=== PATIENT | male | born 1950 | race Caucasian/White ===

== ENCOUNTER 2019-09-17 08:16 | Day surgery (SDC) | payer MEDICARE ==
[~2019-09-17] VITALS: Ht 182.9 cm; Wt 85.5 kg
[2019-09-17] MEDS ORDERED: IBU600 MG PO (09:02)
== END 2019-09-17 10:26 | disposition home or self-care (01) ==
LOC: ORSCSDS 08:16
PROVIDERS: Ophthalmology
PROC: 08RJ3JZ Replacement of Right Lens with Synthetic Substitute, Percutaneous Approach (ICD-10-PCS; principal; 2019-09-17 10:00)
DX: H25.11 Age-related nuclear cataract, right eye (principal); I10 Essential (primary) hypertension; F17.210 Nicotine dependence, cigarettes, uncomplicated
CPT/HCPCS: J2001; J2250; J3010; J3301; J7120; V2632

== ENCOUNTER 2019-10-06 11:38 | Day surgery (SDC) | payer MEDICARE, OTHER ==
[~2019-10-06] VITALS: Ht 182.9 cm; Wt 85.7 kg
[~2019-10-06 11:38] MED LIST: IBU600 MG PO
--- NOTE | 2019-10-06 12:56 | NUR ---
10/06/19 1256 Lidia Rey (Liyah DONTAE BLOCK PLACED IN OPERATIVE, LEFT HAND, ORDERED. 1 FAILED ATTEMPT IN LH PAIN MOVED AND PULLED IV CATHETER OUT.
== END 2019-10-06 14:50 | disposition home or self-care (01) ==
LOC: ORSCSDS 11:38
PROVIDERS: Orthopaedic Surgery
PROC: 01N50ZZ Release Median Nerve, Open Approach (ICD-10-PCS; principal; 2019-10-06 13:30)
DX: G56.02 Carpal tunnel syndrome, left upper limb (principal); F17.210 Nicotine dependence, cigarettes, uncomplicated
CPT/HCPCS: J0171; J0690; J2250; J3010; J7120

== ENCOUNTER 2019-10-08 07:33 | Day surgery (SDC) | payer MEDICARE, SELFPAY ==
[~2019-10-08] VITALS: Ht 182.9 cm; Wt 190.2 kg
--- NOTE | 2019-10-08 09:12 | NUR ---
10/08/19 0912 Sabine Gage CALL LIGHT WITHIN REACH.
== END 2019-10-08 11:19 | disposition home or self-care (01) ==
LOC: ORSCSDS 07:33
PROVIDERS: Ophthalmology
PROC: 08RK3JZ Replacement of Left Lens with Synthetic Substitute, Percutaneous Approach (ICD-10-PCS; principal; 2019-10-08 09:00)
DX: H25.12 Age-related nuclear cataract, left eye (principal); H21.81 Floppy iris syndrome; I10 Essential (primary) hypertension; I25.2 Old myocardial infarction; E11.9 Type 2 diabetes mellitus without complications; J44.9 Chronic obstructive pulmonary disease, unspecified; F17.210 Nicotine dependence, cigarettes, uncomplicated; Z79.899 Other long term (current) drug therapy
CPT/HCPCS: 82947; J2001; J2250; J3010; J3301; J7040; V2632

== ENCOUNTER 2023-01-29 10:28 | Inpatient (IN) | payer MEDICARE ==
[~2023-01-29] VITALS: Ht 182.9 cm; Wt 84.8 kg
[2023-01-29 11:25] LABS: BASOPHILS ABSOLUTE AUTO 0.11 K/mm3 (0.00-0.23); BASOPHILS PERCENT AUTO 1 % (0-2); EOSINOPHILS ABSOLUTE AUTO 0.18 K/mm3 (0.00-0.68); EOSINOPHILS PERCENT AUTO 1 % (0-6); Hematocrit 49.8 % (37.0-53.0); Hemoglobin 16.8 g/dL (13.5-17.5); IMMATURE GRAN ABSOLUTE AUTO 0.11 K/mm3 (0.00-0.10); IMMATURE GRAN PERCENT AUTO 1 % (0-1); LYMPHOCYTES PERCENT AUTO 10 % (21-46); MONOCYTES ABSOLUTE AUTO 1.04 K/mm3 (0.16-1.47); MONOCYTES PERCENT AUTO 8 % (4-13); Mean Corpuscular HGB 33.1 pg (26.0-34.0); Mean Corpuscular HGB Conc 33.7 g/dL (31.5-36.5); Mean Corpuscular Volume 98 fL (80-100); Mean Platelet Volume 11.4 fL (9.1-12.4); NEUTROPHILS ABSOLUTE AUTO 10.56 K/mm3 (1.96-9.15); NEUTROPHILS PERCENT AUTO 79 % (41-73); Platelet Count 328 K/mm3 (150-400); RDW Coefficient Variation 16.7 % (11.7-14.2); RDW Standard Deviation 58.4 fL (35.1-46.3); Red Blood Cell Count 5.07 M/mm3 (4.30-5.90)
[2023-01-29 11:40] LABS: Albumin, Blood 2.7 g/dL (3.4-5.0); Albumin/Globulin Ratio 0.5 (0.8-1.8); Bilirubin, Direct 0.8 mg/dL (0.0-0.3); Bilirubin, Indirect 1.1 mg/dL (0.1-0.7); Bilirubin, Total 1.9 mg/dL (0.1-1.0); Bun/Creatinine Ratio 33.4 (12.0-20.0); Creatinine, Blood 0.54 mg/dL (0.60-1.20); Globulin, Blood 5.4 g/dL (2.2-4.0); Magnesium, Blood 2.2 mg/dL (1.6-2.4); Total Protein, Blood 8.1 g/dL (6.4-8.2)
[2023-01-29 11:49] LABS: International Normalized Ratio 1.25; Prothrombin Time Results 12.9 Sec (9.7-11.5)
[2023-01-29 11:59] LABS: Source, Urine Straight Cath
[2023-01-29 12:03] LABS: Appearance, Urine Clear (Clear); Blood, Urine 1+ (Neg); Color, Urine Amber (P-Yellow); Glucose Qualitative, Urine Neg (Neg); Ketones, Urine 1+ (Neg); Leukocyte Esterase, Urine 1+ (Neg); Nitrite, Urine Pos (Neg); Protein, Urine 3+ (Neg); Urobilinogen, Urine 4+ (Normal)
[2023-01-29 12:07] LABS: Influenza A, PCR NEGATIVE (NEGATIVE); Influenza B, PCR NEGATIVE (NEGATIVE); Resp Syncytial Virus, PCR NEGATIVE (NEGATIVE); SARS-Cov-2 (COVID-19) PCR, MMC NEGATIVE (NEGATIVE)
[2023-01-29 12:25] LABS: Bilirubin, Urine 2+ (Neg)
[2023-01-29 12:28] LABS: Red Blood Cells, Urine 0-2 /hpf (0-2); Squamous Epithelial Cells Rare /hpf (Few); White Blood Cells, Urine 0-2 /hpf (0-5)
[2023-01-29 12:29] LABS: Bacteria Mod /hpf; Mucus Heavy (0-Heavy)
[2023-01-29 15:12] LABS: International Normalized Ratio 1.22; Prothrombin Time Results 12.6 Sec (9.7-11.5)
[2023-01-29 16:11] LABS: Albumin, Body Fluid 1.7 g/dL; Automated BF RBC Count 0.014 M/mm3 (0-0); Automated BF WBC Count 0.834 K/mm3 (0-999); Body Fluid WBC Count 834 /mm3 (0-999); Glucose, Body Fluid 125 mg/dL; Lactate Dehydrogenase, Body Fl 273 U/L; Protein, Body Fluid 3.8 g/dL; RBC Count, Body Fluid 14000 /mm3 (0-0)
--- NOTE | 2023-01-29 16:15 | NUR ---
PATIENT FROM ED TO ROOM 302, REPORT RECEIVED FROM ISMA. VSS, PATIENT ARRIVED ON 2L O2 VIA NC AND SATS 99%. LUNGS DIMINSHED THROUGHOUT. TRANSFERRED TO THE BED WITH 2 ASSIST, VERY WEAK. RASH NOTED TO GROIN AREA, OTHERWISE SKIN INTACT. PATIENT ORIENTED TO ROOM AND USE OF CALL LIGHT. BED ALARM SET FOR SAFETY AND FALL PREVENTION DISCUSSED.
[2023-01-29 18:04] LABS: Total Cell Count, Body Fluid 100
[2023-01-29 18:05] LABS: Appearance, Body Fluid Cloudy (Clear); Color, Body Fluid Amber (None-Yellow)
[2023-01-30 05:14] LABS: BASOPHILS ABSOLUTE AUTO 0.02 K/mm3 (0.00-0.23); BASOPHILS PERCENT AUTO 0 % (0-2); EOSINOPHILS ABSOLUTE AUTO 0.01 K/mm3 (0.00-0.68); EOSINOPHILS PERCENT AUTO 0 % (0-6); Hematocrit 43.7 % (37.0-53.0); Hemoglobin 14.5 g/dL (13.5-17.5); IMMATURE GRAN ABSOLUTE AUTO 0.15 K/mm3 (0.00-0.10); IMMATURE GRAN PERCENT AUTO 1 % (0-1); LYMPHOCYTES ABSOLUTE AUTO 0.79 K/mm3 (0.84-5.20); LYMPHOCYTES PERCENT AUTO 6 % (21-46); MONOCYTES ABSOLUTE AUTO 0.78 K/mm3 (0.16-1.47); MONOCYTES PERCENT AUTO 6 % (4-13); Mean Corpuscular HGB 32.6 pg (26.0-34.0); Mean Corpuscular HGB Conc 33.2 g/dL (31.5-36.5); Mean Corpuscular Volume 98 fL (80-100); Mean Platelet Volume 12.1 fL (9.1-12.4); NEUTROPHILS ABSOLUTE AUTO 11.26 K/mm3 (1.96-9.15); NEUTROPHILS PERCENT AUTO 86 % (41-73); Platelet Count 296 K/mm3 (150-400); RDW Coefficient Variation 16.4 % (11.7-14.2); RDW Standard Deviation 58.3 fL (35.1-46.3); Red Blood Cell Count 4.45 M/mm3 (4.30-5.90); White Blood Cell Count 13.01 K/mm3 (4.00-11.30)
--- NOTE | 2023-01-30 05:47 | NUR ---
DID NOT ATTEMPT TO GET OOB, CONT/INCONT THIS SHIFT. MAKES NEEDS KNOWN, FOLLOWS COMMANDS. VSS ON 2L. URINE DARK AND CLOUDY. NO BM THIS SHIFT. TELE IN PLACE, NO IRREGULARITIES REPORTED. REPOSITIONS INDEPENDENTLY IN BED. TOLERATES THIN LIQUIDS.
[2023-01-30 05:58] LABS: Albumin/Globulin Ratio 0.4 (0.8-1.8); Bilirubin, Total 1.1 mg/dL (0.1-1.0); Bun/Creatinine Ratio 34.5 (12.0-20.0); Calcium, Blood 8.5 mg/dL (8.5-10.1); Creatinine, Blood 0.55 mg/dL (0.60-1.20); Globulin, Blood 4.9 g/dL (2.2-4.0); Potassium, Blood 4.3 mmol/L (3.5-5.5); Total Protein, Blood 6.9 g/dL (6.4-8.2)
[2023-01-30] MEDS ORDERED: TAMS.4ER PO (14:28)
[2023-01-30] MEDS ORDERED: AMLO10 PO (14:29)
[2023-01-30] MEDS ORDERED: HYDHCL25 PO (14:30)
[2023-01-30] MEDS ORDERED: BREO ELLIPTA 21 EAC1 INH (14:32)
[2023-01-30] MEDS ORDERED: ALBU90OI (14:33)
--- NOTE | 2023-01-30 16:59 | NUR ---
PATIENT A/OX4, UP TODAY WITH SBA. 2LO2 TO MAINTAIN SATS. BREATHING LESS LABORED TODAY. ATIVAN GIVEN THIS AFTERNOON FOR ANXIETY WHICH HELPED PATIENT REST WELL. TOLERATING REGULAR DIET. PATIENT HAD A FEW LOOSE STOOLS TODAY. VOIDING IN URINAL. UPDATED MED REC AND SOME OF PATIENTS HOME MEDICATIONS ARE NOW ORDERED. FAMILY IN TO SEE PATIENT FOR A FEW HOURS. FUNGAL POWDER APPLIED TO GROIN RASH, OTHERWISE SKIN INTACT. CT OF ABDOMEN COMPLETED, MD TO DISCUSS RESULTS WITH PATIENT. FALL PRECAUTIONS IN PLACE.
[2023-01-31 05:49] LABS: Calcium, Blood 8.5 mg/dL (8.5-10.1); Creatinine, Blood 0.49 mg/dL (0.60-1.20); Potassium, Blood 4.3 mmol/L (3.5-5.5)
--- NOTE | 2023-01-31 05:53 | NUR ---
DYSPNEA AND TACHYPNEA CONTINUE, ESPECIALLY WITH ACTIVITY. 2-4 L NC O2 FOR COMFORT. USES URINAL BUT FORGETS TO USE CALL LIGHT, BED ALARM ON. AUDIBLE WHEEZING AT TIMES. REPOSITIONS INDEPENDENTLY. NO SIGNIFICANT CHANGES.
[2023-01-31 06:13] LABS: BASOPHILS PERCENT AUTO 1 % (0-2); EOSINOPHILS PERCENT AUTO 3 % (0-6); Hemoglobin 13.9 g/dL (13.5-17.5); IMMATURE GRAN PERCENT AUTO 1 % (0-1); LYMPHOCYTES ABSOLUTE AUTO 1.73 K/mm3 (0.84-5.20); LYMPHOCYTES PERCENT AUTO 12 % (21-46); MONOCYTES ABSOLUTE AUTO 1.19 K/mm3 (0.16-1.47); MONOCYTES PERCENT AUTO 8 % (4-13); Mean Corpuscular HGB Conc 33.1 g/dL (31.5-36.5); Mean Corpuscular Volume 100 fL (80-100); Mean Platelet Volume 11.7 fL (9.1-12.4); NEUTROPHILS ABSOLUTE AUTO 10.76 K/mm3 (1.96-9.15); NEUTROPHILS PERCENT AUTO 75 % (41-73); Platelet Count 300 K/mm3 (150-400); RDW Coefficient Variation 16.6 % (11.7-14.2); RDW Standard Deviation 59.3 fL (35.1-46.3); Red Blood Cell Count 4.21 M/mm3 (4.30-5.90); White Blood Cell Count 14.28 K/mm3 (4.00-11.30)
[2023-01-31 08:53] LABS: Cancer Antigen 19-9 4.7 U/mL (2.0-37.0)
--- NOTE | 2023-01-31 12:44 | NUR ---
CASE CONF WITH PT RN, REPORTS PT FAMILY IS NO LONGER IN THE ROOM, PT IS ANXIOUS AND WITHDRAWN. PT IS EXPERIENCING RAPID BREATHING BUT IS DELCINING MEDICATION AT THIS TIME. INTURDED MYSELF AND EXPLIANED WHAT PALLIATIVE CARE IS. PT IS JUST GETTING HIS LUNCH TRAY, DOESNT MAKE EYE CONTACT AND HAS NO QUESTIONS AT THIS TIME. GAVE PT A TOWEL TO PUT OVER HIS LAP WHEN HE EATS AND ADVISED I WILL RETURN AFTER LUNCH AND WHEN HIS FAMILY RETURNS AND HE IS AGREEABLE TO THIS PLAN. PALLIATIVE CARE WILL CONTINUE TO FOLLOW.
--- NOTE | 2023-01-31 17:19 | NUR ---
CASE CONF WITH RN, PT PAIN/BREATHING WAS MINIALLY MANAGED WITH IV MS AND LORAZEPAM. PT MEDICATED WITH PO DILAUDID OVER AN HOUR AGO, WILL CONTINUE TO ASSESS. PT SITTING UP IN BED LEANING TO THE RIGHT WITH HIS HEAD ON HIS HAND. PT IS SLEEPING, BREATHING IS LABORED, BUT APPEARS TO BE IMPROVING. MET WITH PT FAMILY, SISTER YG AND BROTHER IN LAW, ASHLEY WHO ARE AT THE BEDSIDE. THEY HAVE AMNY QUESTIONS AND WERE DISAPPOINTED THAT THEY MISSED DR MCCRAY VISIT. PT LILLIAN MAGUIRE WAS IN THE ROOM AND REPORTED THAT THERE IS A POSSABILITY FOR TREAMTENT ONCE PT IS DC FROM HOSPITAL. YG ASKING TO SPEAK TO DR MILLARD WITH MANY QUESTIONS ABOUT HOW LONG PT WILL BE IN THE HOSPITAL SO HE CAN START TREATMENT. ADVISED FAMILY THAT PT IS STILL VERY SICK AND NOT YET STABLE ENOUGH TO LEAVE THE HOSPITAL. YG REPORTS THAT IT IS UNCLEAR WHAT IS CAUSING ALL THE FLUID IN PTS CHEST AND ABD, THIS IS NEW FOR HIM. ENCOURAGED FAMILY TO TAKE THIS ONE DAY AT A TIME AND MAKE DECISIONS NEEDED/INDICATED. CALL PLACED TO DR MILLARD, SHE REPORTS SHE WILL MEET WITH PT SISTER, YG TOMORROW AROUND 11. PLAN TO HAVE THE RN CALL HER WHEN THE FAMILY ARRIVES. YG IS UPDATED, ALL QUESTIONS ARE ANSWERED TO MY ABILITY AT THIS TIME AND PALLIATIVE CARE WILL CONTINUE TO FOLLOW.
--- NOTE | 2023-01-31 18:09 | NUR ---
PATIENT A/OX4, UP WITH SBA TO RESTROOM. VSS, ON 4LO2 TO MAINTAIN SATS. SOB WITH EXERTION. DR VALLADARES AND PALLIATIVE CARE IN TODAY TO DISCUSS NEW CANCER DIAGNOSIS. FAMILY AT BEDSIDE THIS AFTERNOON. ATIVAN GIVEN X1 FOR ANXIETY WITH GOOD RELIEF. STARTED ON DILAUDID PO FOR PAIN WHICH PATIENT REPORTS HELPED AND WAS ABLE TO REST. LASIX GIVEN THIS AM WITH GOOD URINE OUTPUT. TOLERATING REGULAR DIET. FALL PRECAUTIONS IN PLACE AND SAFETY DISCUSSED.
[2023-02-01 04:42] LABS: BASOPHILS PERCENT AUTO 1 % (0-2); EOSINOPHILS ABSOLUTE AUTO 0.27 K/mm3 (0.00-0.68); EOSINOPHILS PERCENT AUTO 3 % (0-6); Hemoglobin 14.5 g/dL (13.5-17.5); IMMATURE GRAN ABSOLUTE AUTO 0.08 K/mm3 (0.00-0.10); IMMATURE GRAN PERCENT AUTO 1 % (0-1); LYMPHOCYTES ABSOLUTE AUTO 1.35 K/mm3 (0.84-5.20); LYMPHOCYTES PERCENT AUTO 13 % (21-46); MONOCYTES ABSOLUTE AUTO 0.99 K/mm3 (0.16-1.47); MONOCYTES PERCENT AUTO 9 % (4-13); Mean Corpuscular Volume 100 fL (80-100); Mean Platelet Volume 12.1 fL (9.1-12.4); NEUTROPHILS ABSOLUTE AUTO 7.77 K/mm3 (1.96-9.15); NEUTROPHILS PERCENT AUTO 74 % (41-73); Platelet Count 275 K/mm3 (150-400); RDW Coefficient Variation 16.5 % (11.7-14.2); RDW Standard Deviation 59.6 fL (35.1-46.3); White Blood Cell Count 10.56 K/mm3 (4.00-11.30)
--- NOTE | 2023-02-01 04:47 | NUR ---
shift summery. Pt up x 1 to void, pt incont at times. Pt alert but sleepy tonight. pt seemed to be sleeping well tonight. Call light in reach bed alarm on.
[2023-02-01 05:02] LABS: Bun/Creatinine Ratio 31.4 (12.0-20.0); Calcium, Blood 7.7 mg/dL (8.5-10.1); Creatinine, Blood 0.64 mg/dL (0.60-1.20); Potassium, Blood 4.9 mmol/L (3.5-5.5)
--- NOTE | 2023-02-01 10:45 | NUR ---
LATE ENTRY CASE CONSULT NOTE WITH RN FROM 01/31/2023 PT RESTING MORE COMF WITH PO DILAUDID, ENCOURAGED TO USE PO MEDICATION FIRST AND THEN IV PAIN MEDICATION FOR BREAKTHROUGH PAIN.
[2023-02-01] MEDS ORDERED: ACET325 PO (11:25)
[2023-02-01] MEDS ORDERED: LEVFLO500 PO (11:26)
[2023-02-01] MEDS ORDERED: DOCU100 PO (11:27)
[2023-02-01] MEDS ORDERED: FURO40 PO (11:27)
[2023-02-01] MEDS ORDERED: HYDMOR2 PO (11:28)
[2023-02-01] MEDS ORDERED: Ativan1 MG PO (11:30)
[2023-02-01] MEDS ORDERED: METO25 PO (11:30)
[2023-02-01] MEDS ORDERED: MICONAZOLE NIT130 GM TOP (11:31)
[2023-02-01] MEDS ORDERED: ONDA4ODT MM (11:32)
[2023-02-01] MEDS ORDERED: PANT20 PO (11:32)
[2023-02-01] MEDS ORDERED: SENN187 PO (11:32)
[2023-02-01] MEDS ORDERED: VISBIOME 112.51 EACH PO (11:33)
[2023-02-01] MEDS ORDERED: B-1100 M1 PO (11:33)
--- NOTE | 2023-02-01 12:06 | NUR ---
RENETTA CONF WITH RN TO VERIFY THAT PT IS STILL TO BE DCD TODAY TO GO HOME WITH FAMILY-AND THE PT SISTER YG WAS ABLE TO MEET WITH DR MILLARD AT 1100 TODAY. SHAHRAM VERIFYS THIS. MET WITH PT AND HIS SISNTER IN THE ROOM. PT APPEARS TO BE SLEEPING WITH HOB ELEVATED. BREATHING IS REMAINS LABORED, BUT LOOKS IMPROVED FROM YESTERDAY. PT DOES NOT OPEN HIS EYES OR PARTICIPATE IN THE CONVERSATION. PT WILL OPEN HIS EYES TO VOICE, BUT WILL THEN GO BACK TO SLEEP. YG BECOMES TEARFUL AND HAS MANY CONCENS AND QUESTIONS. WE MOVE OUTSIDE THE ROOM TO ALLOW YG TO SPEAK FREELY. YG REPORTS THAT SHE IS VERY CONCERNED FOR HER BROTHER. SHE REMINISCES ABOUT THE LOSS OF SEVERAL FAMILY MEMBERS IN HER LIFE, BECOMES TEARFUL AND IS SCARED FOR HER BROTHER. SHE IS WORRIED HER BROTHERS CHOICE TO PERSUE TREATMENT SHE IS NOT SURE THIS IS HIS WISHES. DECISION IS MADE FOR YG AND I TO SPEAK TO FRANCHESCA AND ASK HIM DIRECTLY WHAT HIS WISHES ARE. YG AND THIS RN ASK FRANCHESCA WHAT HIS WISHES ARE. THIS RN ASKS PT WHAT ARE HIS WISHES? DOES HE WANT TO PERSUE TREATMENT FOR HIS CANCER, OR GO HOME TO BE COMFORTABLE. FRANCHESCA INITIALLY DIDNT OPEN HIS EYES WHEN WE SPOKE TO HIM. HOWEVER, WITH SOME STIMULATION, PT OPENS HIS EYES AND STATES, " I TO SEE THE ONCOLOGIST FOR TREATMENT." THIS REASSURES YG BECUASE SHE WANTS TO HONOR WHAT HER BROTHER WANTS. FOLLOW UP WITH [employer], UPDATED HER ON THIS CONVERSATION AND PT WISHES. PLAN TO FOLLOE THROUGH WITH CURRENT DC PLAN. PROVIDED PALLIATIVE CARE CONTACT INFORMATION TO YG TO CALL US IS SHE NEEDS ADDITIONAL SUPPORT AFTER THE PT IS DCD FROM THE HOSPITAL.
--- NOTE | 2023-02-01 16:35 | NUR ---
CASE CONF WITH RN, PT WAS PENDING DC AND HAD A FALL WHILE IN THE ROOM WITH FAMILY TRYING TO GO TO THE BATHROOM. PT WAS UNABLE TO GET BACK UP, HAS NO C/O PAIN OR OBVIOUS INJURIES. SISTER, YG IS VERY CONCERNED THAT SHE IS NOT GOING TO BE ABLE TO CARE FOR THE PT AT HOME. ADVISED HER THAT A PT CONSULT WAS ORDERED AND WE WILL SEE WHAT THEIR RECOMENDATIONS WILL BE BEFORE ANY DECISIONS ABOUT DC ARE MADE. GENTLY STARTED CONVERSATION ABOUT GOALS OF CARE WITH YG AND PT SON, FRANCHESCA AND HOW TO PROCEED IF PT CONTINUES TO BECOME WEAKER, UNABLE TO STAND OR GET OUT OF BED. SISTER THINKS THAT THE PT HAS GIVEN UP AND IS READY TO GO BE WITH HIS . ADVISED THAT IF PT CONTINUES TO DELCINE AND UNABLE TO STAY AWAKE, ATTEND DOCTOR APPOINTMENTS, MAY NEED TO CONSIDER CC/HOSPICE UPON DC. YG [place], ADVISED WE WILL TAKE IT ONE DAY AT A TIME AND REVISIT THIS TOMORROW. CM AND RN UPDATED ON CONVERSATION. PALLIATIVE CARE WILL CONTINUE TO FOLLOW.
--- NOTE | 2023-02-01 16:41 | NUR ---
PT HAS BEEN AOX2-3 AND VERY WEAK. PT STILL VERY SOB ON 4L. PT IS A STANDBY USING URINAL AT BEDSIDE. PT WAS TO BE DISCHARGED HOME AND HAD HIS O2 AND WALKER DROPPED OFF TO ROOM. SISTER WAS WITH PT AND PT HAD FALL. DR VALLADARES NOFTIED AND PT DENIED HEAD INJURY AND HAD TWO NEW SKIN TEARS ON L ARM AROUND ELBOW AND FOREARM. DR VALLADARES ORDERED PHYSICAL THERPAY AND PT IS ON HOLD FOR DISCHARGE. WILL CONTINUE TO MONITOR CLOSLEY. BED ALARM IN PLACE.
--- NOTE | 2023-02-01 16:58 | NUR ---
CASE CONF WITH PT, ASSESSED PT AND PER PT, PT IS UNABLE TO STAY AWAKE TO PARTICIPATE WITH THERAPY. UPDATED CM AND RN CALL PLACED TO DR VALLADARES, UPDATED HER ON PT ASSESSMENT AND GOALS OF CARE CONVERSATION WITH FAMILY THAT IF PT CONTINUES TO SHOW DECLINE, INABILITY TO STAND OR GET OUT OF BED OR ATTEND DOCTOE VISITS, MAY NEED TO CONSIDER CC/HOSPICE. PALLIATIVE CARE WILL CONTINUE TO FOLLOW.
--- NOTE | 2023-02-02 15:41 | NUR ---
CALL PLACED TO PT SISTER, UPDATE PROVIDED ON HER BROTHER [facility] ASKING SISTER WHAT ARE HER WISHES FOR HER BROTHER. SHE REPORTS THAT SHE WANTS HIM TO COME HOME ON HOSPICE. SHE VERBALIZES THAT WITH ALL THE HELP FROM THE FAMILY, THEY WILL BE ABLE TO TAKE CARE OF HIM. SHE REPORTS HIS SON WILL BE COMING UP SOON FROM [place] TO SEE HIS DAD. SHE IS WORRIED ABOUT TRANSPORTATION OF THE PT TO GET HIM HIME, ADVISED CM WILL TAKE CARE OF THIS AND WILL COORDINATE DC WITH SAME DAY ADMIT WITH HOSPICE. ENCOURAGED HER TO CALL PALLIATIVE CARE FOR ANY ADDITIONAL QUESTIONS OR CONCERNS. CALL PLACED TO DR RILEY, UPDATED HER IB FAMILY WSHES FOR HOSPICE. ASKEDIF PT WAS A CANDIDTE FOR PLEURIX TO BE PLACED PRIOR TO DC FOR COMFORT AND AVOID READMISSION. SHE WILL PLACE A SURGICAL CONSULT. CM UPDATED ON HOSPICE AND POTENTIAL PLEURIX PLACEMENT. PALLIATIVE CARE WILL CONTINUE TO FOLLOW
--- NOTE | 2023-02-02 17:01 | NUR ---
THIS [employer]AN[employer] WEAPONS CREWMEMBER HAS REVEIWED ALL ASSESSMENTS AND NOTES BY SHANTANU DEVLIN AND AGREES.
--- NOTE | 2023-02-02 17:32 | NUR ---
CASE CONF WITH RN, SURGERY ASSESSED PT AND PLANS TO PLACE PLEURIX TOMORROW AND DC ARRANGED WITH [facility] ON SUNDAY. CALL PLACED TO YG, PT SISTER. SHE WILL BE IN TOMORROW TO VISIT PT.
--- NOTE | 2023-02-02 17:33 | NUR ---
PATIENT MORE ALERT TODAY THAN YESTERDAY, ATE 90% OF BREAKFAST, SLEEPY AND AROUSABLE, ABLE TO COMMUNICATE EFFECTIVELY. PAIN CONTINUES TO BE 7/10, MEDICATING PER EMAR. BED ALARM ON, CALL LIGHT IN REACH
--- NOTE | 2023-02-03 04:46 | NUR ---
SHIFT SUMMERY, PT UP SEVERAL TIMES SETTING OFF BED ALARM AND NEEDING TO VOID OR CONFUSED WANTING TO GET UP. PT GIVEN TRAMADOL FOR PAIN. CALL LIGHT IN REACH AND BED ALARM ON.
--- NOTE | 2023-02-03 12:27 | NUR ---
RN NOTE MR FIGUEROA WENT TO THE OR FOR RIGHT SIDE PLEUROVAC DRAIN PLACEMENT THIS MORNING. RETURNED TO MEDICAL UNIT AT 0945. HE WAS SLEEPY BUT EASILY AROUSABLE AFTER SEDATION FOR PROCEDURE. PLEUROVAC DRAIN DRESSING IS C,D,I. DRAIN CAPPED. 1100CC DRAINED IN OR PER REPORT. HE HAS BEEN ORIENTATED TO [facility] AND JANUARY, NOT YEAR. HE FORGETS INSTRUCTIONS AND HAS NOT USED THE CALL LIGHT. HE HAS SOME URINARY FREQUENCY AND VOIDS SMALL VOLUMES. HE HAS THE BED ALARM ON BUT HAS GOT UP SEVERAL TIMES BY HIMSELF. PLAN IS TO GO HOME ON HOME HOSPICE ON SUNDAY TO BE WITH HIS SISTER. BED LOW, CALL LIGHT IN REACH.
--- NOTE | 2023-02-03 16:21 | NUR ---
RN NOTE DR RILEY CALLED ORDER FOR NO IV NEEDED AND AZYTHROMYCIN DOSE DUE. DR RILEY GAVE ME A TELEPHONE ORDER TO DISCONTINUE THE AZITHROMYCIN, NOT TO GIVE THIS DOSE.
--- NOTE | 2023-02-03 17:28 | NUR ---
SHIFT SUMMARY MR FIGUEROA HAD R PLEURAX DRAIN PLACEMENT THIS AM. A LITTLE S/S DRAINAGE ON PLEURAX DRAIN SITE BELOW TEGADERM. DRAIN CAPPED. PT HAS GOT OUT OF BED A FEW TIMES WITHOUT USING CALL LIGHT. OFFERED URINAL FREQUENTLY THAT SEEMS TO BE THE REASON HE WANTS TO GET UP. REPORT TO MICHAEL DEVLIN AND PT MOVED TO BE UNDER CLOSER OBSERVATION FOR FALL PREVENTION.
--- NOTE | 2023-02-03 18:06 | NUR ---
PT TRANSFERED TONIGHT TO [facility]. BEDSIDE REPORT TAKEN FROM RN. PT ANXIOUS-MEDICATED. PT'S PAIN MODERATELY CONTROLLED WITH PAIN MEDS.
--- NOTE | 2023-02-04 08:29 | NUR ---
Spoke with Primary RN Hazel and discussed case. Pt painful with current regimen not beneficial. Pt resting in bed and mumbles with attempts of verbal response. Pt does report significant pain in his abdomen. Pt attempting to eat breakfast. Ended visit to allow Pt to eat. Spoke with Dr Garay and discussed case. Placed order for Medway 5/325 mg every 6 hours as needed for pain per V/O from Dr Garay. Called and spoke with Pt's niece Yessy. Yessy reports Pt's sister Venus is sleeping but should be awake in about an hour. She reports Venus will call back to discuss code status and completing POLST. Palliative Care will remain available
--- NOTE | 2023-02-04 12:39 | NUR ---
Family has arrived to learn PleaurX drain. Pt resting in bed upon arrival. Pt reports pain in his abdomen and chest area. Primary RN into offer pain medication. Sister Venus and family friend at bedside. Educated family on PleurX drain system via demonstration and answered questions during process. Drained approximately 1100 mls of fluid. Pt reports SOB has improved. Offered therapeutic listening and answered questions for family. Discussed considering comfort care during Pt's hospital stay. Educated on comfort care philosophy. Family elects comfort care until D/C home with hospice services. Assisted with completing POLST. Family expresses appreciation and report no other concerns at this time. Family report maintenance medications may be D/C. Spoke with Dr Garay. Placed comfort care order, comfort care order set, D/C maintenance medications per V/O from Dr Garay. Continued some maintenance medications as they can be for comfort. Palliative Care will remaina available.
[2023-02-04 17:08] LABS: HBSAG SCREEN Negative (Negative); HCV AB Reactive (Non Reactive); HCV LOG10 5.744 (.); HEP A AB, IGM Negative (Negative); HEP B CORE AB, IGM Negative (Negative); HEP B CORE AB, TOT Positive (Negative); HEPATITIS C QUANTITATION 555000 IU/mL (.)
--- NOTE | 2023-02-04 17:45 | NUR ---
SHIFT SUMMARY- PT'S PAIN AND ANXIETY HARD TO CONTROL THIS SHIFT. PT AAOX3. DOES NOT USE CALL LIGHT. 1100ML DRAINED FROM PLEUREX TODAY.
--- NOTE | 2023-02-05 05:02 | NUR ---
A/OX2-3; CALM THROUGHOUT FILTER WASHER AND PRESSER, ANXIETY AT TIMES PER REPORT. COOPERATIVE. 1X ASSIST PER REPORT; NOT OOB THIS SHIFT. DENIES PAIN AT THIS TIME; COMFORT LEVEL FREQUENTLY ASSESSED. REPOSITIONED PRN (APPROX Q3 HRS). SOB WITH EXERTION. LUNGS DIMINISHED THROUGHOUT. 4 L VIA NC. BED ALARM SET. SLEEP PROMOTED. CALL LIGHT IN REACH; ENCOURAGED TO MAKE NEEDS KNOWN.
--- NOTE | 2023-02-05 08:20 | NUR ---
Pt resting in bed attempting to eat his breakfast. Pt responds minimally with a few mumbled difficult to understand words. Spoke with Primary RN Hazel and discussed case. Pt to D/C today and she will drain Pt before D/C. Palliative Care will remain available
--- NOTE | 2023-02-05 11:05 | NUR ---
1000 DISCHARGE NOTE- PT CLEANED, BRIEF CHANGED, NEW GOWN PLACED RIGHT BEFORE TRANSPORT TOOK PT TO HIS SISTERS HOME. PT IS DC HOME ON HOSPICE. REPORT GIVEN TO [facility]. PT LEFT WITH ALL BELONINGS INCLUDING THE PLEURX DRAIN KIT.
== END 2023-02-05 10:55 | disposition hospice, home (50) | DRG 435 ==
LOC: ER 10:28 → MEDS 14:33
PROVIDERS: Internal Medicine; Student in an Organized Health Care Education/Training Program; ADMIT Internal Medicine
PROC: 0W9930Z Drainage of Right Pleural Cavity with Drainage Device, Percutaneous Approach (ICD-10-PCS; principal; 2023-01-29)
PROC: 0W9930Z Drainage of Right Pleural Cavity with Drainage Device, Percutaneous Approach (ICD-10-PCS; 2023-02-03)
DX: C22.0 Liver cell carcinoma (principal); J96.01 Acute respiratory failure with hypoxia; J90 Pleural effusion, not elsewhere classified; J98.19 Other pulmonary collapse; E87.20 Acidosis, unspecified; Z66 Do not resuscitate; Z51.5 Encounter for palliative care; F17.210 Nicotine dependence, cigarettes, uncomplicated; Z20.822 Contact with and (suspected) exposure to COVID-19; J44.9 Chronic obstructive pulmonary disease, unspecified; K74.60 Unspecified cirrhosis of liver; F41.9 Anxiety disorder, unspecified; B19.20 Unspecified viral hepatitis C without hepatic coma; K21.9 Gastro-esophageal reflux disease without esophagitis; F10.20 Alcohol dependence, uncomplicated; Z98.890 Other specified postprocedural states; Z98.42 Cataract extraction status, left eye; Z88.5 Allergy status to narcotic agent; Z79.2 Long term (current) use of antibiotics; Z79.899 Other long term (current) drug therapy
CPT/HCPCS: 0241U; 32555; 36415; 71045; 71260; 74170; 74177; 80048; 80053; 80076; 81001; 82042; 82105; 82945; 83036; 83605; 83615; 83735; 83880; 84145; 84157; 84484; 85025; 85610; 85730; 86301; 86704; 86708; 86803; 87040; 87070; 87086; 87205; 87340; 88108; 88305; 89051; 93005; 93010; 94640; 94644; 94664; 94760; 94761; 96365; 96375; 97110; 97116; 97162; 99285-25; A9270; C1729; C9113; J0456; J0696; J1650; J1940; J2250; J2270; J2795; J2930; J3010; J3360; J7050; Q9967